=== PATIENT | male | born 1955 | race Caucasian/White ===

== ENCOUNTER 2020-10-23 07:53 | Outpatient (CLI) | payer OTHER ==
[~2020-10-23 07:53] MED LIST: ASA81 MG PO; GLUCOPHAGE XR500 MG PO; INDAPAMIDE MC; JANUVIA25 MG PO; LISINOPRIL2.5 MG PO; PLAVIX75 MG PO; PROCARDIA90 MG/BLIS PO; [UNRECOGNIZED DRUG - CODE] MC
== END 2020-10-23 15:00 | disposition home or self-care (01) ==
LOC: T RESPIRAT 07:53
PROVIDERS: ATTEND Internal Medicine Pulmonary Disease
DX: R09.02 Hypoxemia (principal)